=== PATIENT | male | born 1995 | race Caucasian/White ===

== ENCOUNTER 2024-09-22 15:01 | Inpatient (IN) | payer OTHER ==
[~2024-09-22] VITALS: Ht 165.1 cm; Wt 67.5 kg
[2024-09-22 15:26] LABS: BASOPHILS % (AUTO) 0.5 % (0.0-2.0); EOSINOPHILS % (AUTO) 1.1 % (1.0-6.0); HEMATOCRIT 46.6 % (41-53); HEMOGLOBIN 15.8 g/dL (13.5-17.5); LYMPHOCYTES # (AUTO) 1.8 K/uL (1.0-4.8); LYMPHOCYTES % (AUTO) 23.1 % (22.0-44.0); MEAN CORPUSCULAR HEMOGLOBIN 30.1 pg (26.0-34.0); MEAN CORPUSCULAR HGB CONC 33.9 G/dL (31.0-37.0); MEAN CORPUSCULAR VOLUME 89 fL (80-100); MONOCYTES # (AUTO) 0.4 K/uL (0.1-1.0); NEUTROPHILS # (AUTO) 5.6 K/uL (1.8-7.7); NEUTROPHILS % (AUTO) 70.3 % (40.0-70.0); PLATELET COUNT (AUTO) 209 K/uL (150-450); RED BLOOD CELL COUNT(AUTO) 5.25 MIL/uL (4.50-5.90); RED CELL DISTRIBUTION WIDTH 13.9 % (11.5-14.5); WHITE BLOOD COUNT (AUTO) 7.9 K/uL (4.5-11.0)
[2024-09-22 15:36] LABS: ANION GAP 8 mmol/L (8-16); CALCIUM, TOTAL 9.6 mg/dL (8.8-10.5); CARBON DIOXIDE 28 mmol/L (22-29); CHLORIDE 104 mmol/L (98-107); CREATININE 0.82 mg/dL (0.60-1.30); GLOMERULAR FILTR. RATE CALC > 60 mL/min (>60); GLUCOSE,RANDOM 95 mg/dL (70-110); POTASSIUM 4.6 mmol/L (3.5-5.1); SODIUM SERUM 140 mmol/L (136-145); UREA NITROGEN, BLOOD 13 mg/dL (7-18)
[2024-09-22 15:47] LABS: ALCOHOL, BLOOD (SERUM) < 3 mg/dL (0-10)
[2024-09-22] MEDS: PENICILLIN V POTASSIUM 500 MG TABLET PO ONE (16:34)
[2024-09-22] MEDS: ACETAMINOPHEN 500 MG TABLET PO ONE (16:34)
[2024-09-22] MEDS: OLANZapine 5 MG TABLET PO ONE (17:17)
[2024-09-22] MEDS ORDERED: ONDANSETRON HCL 4 MG/2 ML VIAL IVP PRN (18:30)
[2024-09-22] MEDS ORDERED: ACETAMINOPHEN 325 MG TABLET PO PRN (18:30)
[2024-09-23] MEDS: HEPARIN SODIUM,PORCINE 5,000 UNITS/ML VIAL SQ SCH
[2024-09-23 03:05] VITALS: BP 93/65; PULSE 55; RESP 18; TEMP 97.8; O2SAT 98
[2024-09-23 03:12] LABS: COVID AG,FIA SOURCE NASAL SWAB
[2024-09-23 05:06] LABS: SARS-COV2 (COVID) ANTIGEN,FIA Negative (Negative)
[2024-09-23 08:02] VITALS: BP 99/58; PULSE 60; RESP 20; TEMP 98; O2SAT 98
[2024-09-23 08:20] LABS: BASOPHILS % (AUTO) 0.4 % (0.0-2.0); EOSINOPHILS % (AUTO) 4.1 % (1.0-6.0); HEMATOCRIT 43.8 % (41-53); LYMPHOCYTES # (AUTO) 2.3 K/uL (1.0-4.8); LYMPHOCYTES % (AUTO) 42.6 % (22.0-44.0); MEAN CORPUSCULAR HEMOGLOBIN 30.7 pg (26.0-34.0); MEAN CORPUSCULAR HGB CONC 34.3 G/dL (31.0-37.0); MEAN CORPUSCULAR VOLUME 89 fL (80-100); MONOCYTES # (AUTO) 0.4 K/uL (0.1-1.0); MONOCYTES % (AUTO) 7.7 % (2.0-9.0); NEUTROPHILS # (AUTO) 2.5 K/uL (1.8-7.7); NEUTROPHILS % (AUTO) 45.2 % (40.0-70.0); PLATELET COUNT (AUTO) 209 K/uL (150-450); RED CELL DISTRIBUTION WIDTH 13.4 % (11.5-14.5); WHITE BLOOD COUNT (AUTO) 5.5 K/uL (4.5-11.0)
[2024-09-23 08:33] LABS: ANION GAP 4 mmol/L (8-16); CALCIUM, TOTAL 9.1 mg/dL (8.8-10.5); CARBON DIOXIDE 32 mmol/L (22-29); CHLORIDE 108 mmol/L (98-107); CREATININE 0.85 mg/dL (0.60-1.30); GLOMERULAR FILTR. RATE CALC > 60 mL/min (>60); GLUCOSE,RANDOM 80 mg/dL (70-110); POTASSIUM 3.8 mmol/L (3.5-5.1); SODIUM SERUM 144 mmol/L (136-145); UREA NITROGEN, BLOOD 15 mg/dL (7-18)
[2024-09-23] MEDS: INFLUENZA VIRUS VACCINE TVS (6MO+) 2024-25/PF 45 MCG/0.5 ML SYRINGE IM. ONE (08:59)
[2024-09-23 10:24] VITALS: BP 103/58; PULSE 71
[2024-09-23 11:00] LABS: ALCOHOL, URINE DRUG SCREEN NEGATIVE (NEGATIVE); AMPHET/METH SCREEN,URINE NEGATIVE (NEGATIVE); BARBITURATE SCREEN, URINE NEGATIVE (NEGATIVE); BENZODIAZEPINES SCREEN,URINE NEGATIVE (NEGATIVE); CANNABINOID SCREEN,URINE NEGATIVE (NEGATIVE); COCAINE SCREEN,URINE NEGATIVE (NEGATIVE); METHADONE SCREEN, URINE NEGATIVE (NEGATIVE); OPIATE SCREEN,URINE NEGATIVE (NEGATIVE); PHENCYCLIDINE SCREEN,URINE NEGATIVE (NEGATIVE)
[2024-09-23] MEDS: OLANZapine 2.5 MG TABLET PO ONE (14:47)
[2024-09-23 16:51] VITALS: BP 108/62; PULSE 68; RESP 19; TEMP 98.1; O2SAT 98
[2024-09-23 19:43] VITALS: BP 96/59; PULSE 63; RESP 18; TEMP 98.1; O2SAT 99
[2024-09-23] MEDS: OLANZapine 5 MG TABLET PO SCH (21:00)
[2024-09-24] MEDS: MELATONIN 3 MG TABLET PO PRN (00:40)
[2024-09-24] MEDS: RINGERS SOLUTION,LACTATED 1,000 ML IV ONE (00:41)
[2024-09-24 05:06] VITALS: BP 93/57; PULSE 57; RESP 18; TEMP 97.7; O2SAT 99
[2024-09-24 09:20] VITALS: BP 115/69; PULSE 68; RESP 17; TEMP 97.5; O2SAT 98
[2024-09-24] MEDS ORDERED: ZOLPIDEM TARTRATE 10 MG TABLET PO PRN (12:45)
[2024-09-24 17:22] LABS: APPEARANCE,URINE CLEAR (CLEAR); BILIRUBIN,URINE NEGATIVE (NEGATIVE); COLOR,URINE LIGHT YELLOW (YELLOW); GLUCOSE, URINE (UA) NEGATIVE (NEGATIVE); KETONES,URINE NEGATIVE (NEGATIVE); LEUKOCYTE ESTERASE ,URINE NEGATIVE (NEGATIVE); NITRATE,URINE NEGATIVE (NEGATIVE); OCCULT BLOOD,URINE NEGATIVE (NEGATIVE); PROTEIN,URINE NEGATIVE (NEGATIVE); SPECIFIC GRAVITIY, URINE 1.013 (1.003-1.030); UROBILINOGEN,URINE <=1.0 mg/dL (<=1.0)
[2024-09-24 20:03] VITALS: BP 94/57; PULSE 79; RESP 16; TEMP 98.2; O2SAT 99
[2024-09-25 05:28] VITALS: BP 93/54; PULSE 57; RESP 18; TEMP 97.6; O2SAT 97
[2024-09-25 08:07] VITALS: BP 92/53; PULSE 56; RESP 18; TEMP 97.6; O2SAT 100
[2024-09-25 08:08] VITALS: BP 92/53; PULSE 56; RESP 18; TEMP 97.6; O2SAT 100
[2024-09-25] MEDS: OLANZapine 5 MG TABLET PO SCH (12:58)
[2024-09-25 17:00] VITALS: BP 101/54; PULSE 58; RESP 17; TEMP 98.2; O2SAT 98
[2024-09-25 20:33] VITALS: BP 95/56; PULSE 66; RESP 18; TEMP 97.7; O2SAT 98
[2024-09-26 04:10] VITALS: BP 94/57; PULSE 58; RESP 18; TEMP 97.7; O2SAT 99
[2024-09-26 10:24] VITALS: BP 96/58; PULSE 64; RESP 18; TEMP 97.7; O2SAT 98
[2024-09-26] MEDS ORDERED: OLAN5TAB30 PO ×2 (12:41)
== END 2024-09-26 16:50 | DRG 885 ==
LOC: EMS 15:01 → EDH 18:27 → 6S 09-23 02:30
PROVIDERS: ADMIT Internal Medicine; ATTEND Internal Medicine
PROC: GZ56ZZZ Individual Psychotherapy, Supportive (ICD-10-PCS; principal; 2024-09-23)
DX: F33.3 Major depressive disorder, recurrent, severe with psychotic symptoms (principal); E86.0 Dehydration; Z20.822 Contact with and (suspected) exposure to COVID-19; G47.00 Insomnia, unspecified; F41.9 Anxiety disorder, unspecified; I10 Essential (primary) hypertension
CPT/HCPCS: 80048; 80307; 81003; 83735; 85025; 96372; 99285; G0378; G0480; J1644; J7120

== ENCOUNTER 2024-11-22 17:06 | Emergency (ER) | payer OTHER ==
[~2024-11-22] VITALS: Ht 165.1 cm; Wt 68.2 kg
[~2024-11-22 17:06] MED LIST: OLAN5TAB30 PO
[2024-11-22 19:19] VITALS: TEMP 99.7
[2024-11-22 19:30] VITALS: BP 144/92; PULSE 76; RESP 18; O2SAT 100
[2024-11-22] MEDS: HYDROCODONE/ACETAMINOPHEN 5-325 MG TABLET PO ONE (21:19)
== END 2024-11-22 22:22 | disposition home or self-care (01) ==
LOC: EMS 17:08
DX: S01.311A Laceration without foreign body of right ear, initial encounter (principal); W22.8XXA Striking against or struck by other objects, initial encounter; Y93.89 Activity, other specified; Y92.89 Other specified places as the place of occurrence of the external cause; Y99.8 Other external cause status
CPT/HCPCS: 12011; 70450; 99284